=== PATIENT | female | born 1980 | race Two or more races ===

== ENCOUNTER 2018-05-19 05:34 | Day surgery (SDC) | payer OTHER ==
[~2018-05-19] VITALS: Ht 160 cm; Wt 73.5 kg
[~2018-05-19 05:34] MED LIST: NIFEDICAL60 MG/BOTT PO
== END 2018-05-19 21:20 | disposition home or self-care (01) ==
LOC: CIR.AMB 05:34 → ER 05:34 → SEC-K 10:38 → O/R 10:38 → ER 10:38 → EDSTATUS 14:45 → SEC-K 16:21 → MEDI 16:21 → O/R 16:22 → CIR.AMB 21:20 → O/R 05-20 08:06
DX: N93.8 Other specified abnormal uterine and vaginal bleeding (principal); D25.0 Submucous leiomyoma of uterus

== ENCOUNTER 2018-07-16 12:17 | Inpatient (IN) | payer OTHER ==
[~2018-07-16] VITALS: Ht 160 cm; Wt 162.0 kg
== END 2018-07-31 09:35 | disposition home or self-care (01) | DRG 743 ==
LOC: ADM 13:15 → EDSTATUS 13:15 → OB/GYN 07-28 06:25 → O/R 07-28 06:25 → SURG 07-28 07:00 → OB/GYN 07-28 13:13 → SURG 07-28 13:15 → OB/GYN 07-31 09:35
PROVIDERS: Obstetrics & Gynecology
PROC: 0UT90ZZ Resection of Uterus, Open Approach (ICD-10-PCS; principal; 2018-07-28 07:00)
PROC: 0UT70ZZ Resection of Bilateral Fallopian Tubes, Open Approach (ICD-10-PCS; 2018-07-28 07:00)
DX: D25.1 Intramural leiomyoma of uterus (principal); D25.0 Submucous leiomyoma of uterus; D25.2 Subserosal leiomyoma of uterus; N93.8 Other specified abnormal uterine and vaginal bleeding; N70.11 Chronic salpingitis